=== PATIENT | female | born 2000 | race Caucasian/White ===

== ENCOUNTER 2019-02-13 19:11 | Emergency (ER) | payer BC ==
[~2019-02-13 19:11] MED LIST: ISOVUE-370 76%-LOCM 1 ML ONE
[2019-02-13 20:59] LABS: #Basophils 0.1 thou/uL (0.0-0.2); #Eosinphils 0.1 thou/uL (0.0-0.7); #Monocytes 0.6 thou/uL (0.11-0.59); #Neutrophils 5.9 thou/uL (1.40-6.50); %Basophils 0.9 % (0.0-1.0); %Eosinophils 0.9 % (0.0-10.0); %Monocytes 6.7 % (0.0-4.0); %Neutrophils 68.5 % (31.0-61.0); Hemoglobin 14.9 g/dL (12.0-16.0); Mean Corpuscular Volume 88.3 fL (78.0-98.0); Mean Platelet Volume 8.7 fL (7.4-10.4); Platelet Count 331 thou/uL (130-400); RBC Distribution Width 11.7 % (11.5-14.5); Red Blood Cell (RBC) Count 4.95 mill/uL (4.00-5.20); White Blood Cell (WBC) Count 8.6 thou/uL (4.8-10.8)
[2019-02-13 21:11] LABS: BHCG - Serum Negative (NEGATIVE); Pregs Control Background? CLEAR/WHITE (CLR/WHITE); Pregs Control Bar Appear? YES (CONTROL BAR)
[2019-02-13 21:15] LABS: ALT (SGPT) 10 U/L (8-55); AST (SGOT) 14 U/L (5-34); Albumin 4.7 g/dL (3.5-5.0); Alkaline Phosphatase 57 U/L (40-150); Anion Gap 12 mmol/L (10-20); BUN (Urea Nitrogen) 9 mg/dL (7.0-18.7); Bilirubin, Total 0.4 mg/dL (0.2-1.2); Calc. Creatinine Clearance 0 mL/min (70-130); Calcium 10.6 mg/dL (7.8-10.44); Carbon Dioxide 25 mmol/L (22-29); Chloride 104 mmol/L (98-107); Estimated GFR-MDRD 89; Globulin 3.3 g/dL (2.4-3.5); Glucose 81 mg/dL (70-105); Lipase 22 U/L (8-78); Potassium 3.3 mmol/L (3.5-5.1); Sodium 138 mmol/L (136-145)
[2019-02-13 21:31] LABS: Bilirubin Negative (Negative); Blood, Urine Negative (Negative); Clarity Turbid (Clear); Glucose, Urine (Dipstick) Normal (Negative); Leukocyte Negative Leu/uL (Negative); Nitrite Negative (Negative); Protein, Urine (Dipstick) Negative (Neg-Trace); Urobilinogen Normal mg/dL (Less than 2)
[2019-02-13] MEDS ORDERED: Lidocaine Viscous Sol 2% 15 ml UD Cup ONE (21:59)
[2019-02-13] MEDS ORDERED: Mag-Al 1200 mg/1200 mg/30 ML UDCUP ONE (21:59)
--- NOTE | 2019-02-13 22:00 | CT ---
CT angiogram thorax with contrast CT angiogram abdomen with contrast: HISTORY: 18-year-old female with hypertension presents with acute epigastric pain. Rule out aortic dissection. TECHNIQUE: IV injection of iodinated contrast. Arterial bolus chasing technique. Scan acquisition from top of aortic arch to iliac crests. 3-D MIP reconstructions. FINDINGS: There is no aortic aneurysm, dissection, rupture, or atherosclerosis. No pulmonary thromboembolism. N o pleural effusion, cardiomegaly, pericardial effusion, mediastinal lymphadenopathy, or hilar lymphadenopathy. Lungs are clear. No pneumothorax. Multiple focal small lucencies with sclerotic mag ins at the glenoid of right scapula. Thoracic and lumbar vertebral body heights are maintained. No major spondylolisthesis. Normal sternum. No free fluid within the abdominal cavity. No retroperitonea l hematoma. Diffusely heterogeneous enhancement of the liver. This could represent shunting, perfusion abnormality. Alternatively, this could represent heterogeneous fatty liver. No splenomegaly . Normal pancreas and adrenals. No hydronephrosis. No evidence of pyelonephritis. No small bowel dilation. No gross abnormality involving upper abdominal portions of colon. Gallbladder is slightly c ontracted. IMPRESSION: 1. Normal aorta. 2. Status post right glenoid labrum repair. 3. Heterogeneous enhancement of the liver, nonspecific.
[2019-02-13] MEDS ORDERED: Potassium Chloride 20 MEQ TAB ONE (22:57)
== END 2019-02-13 23:25 | disposition home or self-care (01) ==
LOC: ERS 19:11
DX: K76.0 Fatty (change of) liver, not elsewhere classified (principal); J45.909 Unspecified asthma, uncomplicated; Z79.51 Long term (current) use of inhaled steroids
CPT/HCPCS: 71275; 80053; 81003; 83690; 84703; 85025; 96360; Q9966